=== PATIENT | female | born 1970 | race American Indian/Alaskan Native ===

== ENCOUNTER 2020-05-14 11:43 | Outpatient (CLI) | payer OTHER ==
--- NOTE | 2020-05-14 13:54 | XRay Report ---
CLINICAL DATA: CERVICALGIA TECHNICAL DATA: AP, lateral, and odontoid imaging was performed. FINDINGS: Bone density is normal. Intervertebral disc space narrowing with osteophyte formation is present at C 3-4, C4-5, C5-6, and C6-7. The posterior elements are intact. No evidence of a fracture or dislocat ion. IMPRESSION: Degenerative changes as described. Signer Name: Glenn Castillo MD Signed: 05/14/2020 1:49 PM Workstation Name: [id number]
== END 2020-05-14 11:44 | disposition home or self-care (01) ==
LOC: XRAY 11:43
PROVIDERS: ATTEND Otolaryngology
DX: M47.812 Spondylosis without myelopathy or radiculopathy, cervical region (principal); M25.78 Osteophyte, vertebrae
CPT/HCPCS: 72040